=== PATIENT | female | born 1940 | race Caucasian/White ===

== ENCOUNTER 2017-10-11 08:15 | Emergency (ER) | payer OTHER ==
[~2017-10-11] VITALS: Ht 160 cm; Wt 64.9 kg
== END 2017-10-11 13:33 | disposition home or self-care (01) ==
LOC: ER 08:15 → EDBD 08:17 → ER 08:17
DX: K62.5 Hemorrhage of anus and rectum (principal); K52.89 Other specified noninfective gastroenteritis and colitis

== ENCOUNTER 2017-12-20 14:30 | Inpatient (IN) | payer OTHER ==
[~2017-12-20] VITALS: Ht 157.5 cm; Wt 63.0 kg
== END 2017-12-28 18:07 | disposition home or self-care (01) | DRG 331 ==
LOC: SURH 12-26 08:06 → O/R 12-26 08:06 → SURG 12-26 12:00 → SURH 12-26 19:49
PROVIDERS: Colon & Rectal Surgery
PROC: 0DTP4ZZ Resection of Rectum, Percutaneous Endoscopic Approach (ICD-10-PCS; 2017-12-26)
PROC: 07TC4ZZ Resection of Pelvis Lymphatic, Percutaneous Endoscopic Approach (ICD-10-PCS; 2017-12-26)
PROC: 0DJD8ZZ Inspection of Lower Intestinal Tract, Via Natural or Artificial Opening Endoscopic (ICD-10-PCS; 2017-12-26)
PROC: 0DTN4ZZ Resection of Sigmoid Colon, Percutaneous Endoscopic Approach (ICD-10-PCS; principal; 2017-12-26 12:00)
DX: C20 Malignant neoplasm of rectum (principal); R59.0 Localized enlarged lymph nodes

== ENCOUNTER 2018-02-23 16:15 | Emergency (ER) | payer OTHER ==
[~2018-02-23] VITALS: Ht 157.5 cm; Wt 55.3 kg
[2018-02-23] MEDS ORDERED: LYRICA50 MG PO (19:31)
== END 2018-02-23 20:10 | disposition home or self-care (01) ==
LOC: ER 16:15
DX: E11.40 Type 2 diabetes mellitus with diabetic neuropathy, unspecified (principal); R00.2 Palpitations

== ENCOUNTER 2019-01-09 23:01 | Emergency (ER) | payer OTHER ==
[~2019-01-09] VITALS: Ht 154.9 cm; Wt 59.0 kg
[~2019-01-09 23:01] MED LIST: LYRICA50 MG PO
[2019-01-09] MEDS ORDERED: NEURONTIN300 MG (23:13)
== END 2019-01-10 17:29 | disposition home or self-care (01) ==
LOC: ER 23:01
DX: R10.12 Left upper quadrant pain (principal); R11.2 Nausea with vomiting, unspecified; T47.2X5A Adverse effect of stimulant laxatives, initial encounter; Y92.89 Other specified places as the place of occurrence of the external cause

== ENCOUNTER 2019-02-21 07:28 | Day surgery (SDC) | payer OTHER ==
[~2019-02-21 07:28] MED LIST changes: +NEURONTIN300 MG
== END 2019-02-21 13:30 | disposition home or self-care (01) ==
LOC: AMB-ENDOS 07:28
DX: C20 Malignant neoplasm of rectum (principal); K64.2 Third degree hemorrhoids

== ENCOUNTER 2020-01-01 19:16 | Emergency (ER) | payer OTHER ==
[~2020-01-01] VITALS: Ht 160 cm; Wt 59.0 kg
[2020-01-01] MEDS ORDERED: GABAPENTIN600 MG PO (20:02)
[2020-01-01] MEDS ORDERED: BUSPIRONE HCL10 MG PO (20:03)
== END 2020-01-01 22:58 | disposition home or self-care (01) ==
LOC: ER 19:16
DX: K59.09 Other constipation (principal)

== ENCOUNTER 2020-01-03 08:09 | Inpatient (IN) | payer OTHER ==
[~2020-01-03] VITALS: Ht 160 cm; Wt 130.0 kg
[~2020-01-03 08:09] MED LIST changes: +BUSPIRONE HCL10 MG PO; +GABAPENTIN600 MG PO
== END 2020-01-08 22:56 | disposition home or self-care (01) | DRG 390 ==
LOC: ER 08:09 → SURH 17:54 → SEC-K 17:54 → SURH 19:34
PROVIDERS: ADMIT Colon & Rectal Surgery; ATTEND Colon & Rectal Surgery
PROC: 0D7 Gastrointestinal System, Dilation (ICD-10-PCS; principal; 2020-01-06)
DX: K56.690 Other partial intestinal obstruction (principal); Z20.828 Contact with and (suspected) exposure to other viral communicable diseases

== ENCOUNTER 2020-04-12 19:22 | Inpatient (IN) | payer OTHER ==
[~2020-04-12] VITALS: Ht 157.5 cm; Wt 59.0 kg
== END 2020-04-23 17:35 | disposition home or self-care (01) | DRG 373 ==
LOC: ER 19:22 → SURH 22:55 → MEDJ 22:55 → SURH 04-13 13:54
PROVIDERS: ADMIT Colon & Rectal Surgery; ATTEND Colon & Rectal Surgery
PROC: BW21ZZZ Computerized Tomography (CT Scan) of Abdomen and Pelvis (ICD-10-PCS; 2020-04-13)
PROC: 4A12X4Z Monitoring of Cardiac Electrical Activity, External Approach (ICD-10-PCS; 2020-04-13)
PROC: 0D9W30Z Drainage of Peritoneum with Drainage Device, Percutaneous Approach (ICD-10-PCS; principal; 2020-04-14)
PROC: BW21YZZ Computerized Tomography (CT Scan) of Abdomen and Pelvis using Other Contrast (ICD-10-PCS; 2020-04-14)
PROC: BW21YZZ Computerized Tomography (CT Scan) of Abdomen and Pelvis using Other Contrast (ICD-10-PCS; 2020-04-21)
DX: K65.1 Peritoneal abscess (principal); N73.8 Other specified female pelvic inflammatory diseases; G62.9 Polyneuropathy, unspecified; B96.29 Other Escherichia coli [E. coli] as the cause of diseases classified elsewhere; Z85.048 Personal history of other malignant neoplasm of rectum, rectosigmoid junction, and anus; Z08 Encounter for follow-up examination after completed treatment for malignant neoplasm; Z20.822 Contact with and (suspected) exposure to COVID-19; R00.0 Tachycardia, unspecified

== ENCOUNTER 2020-07-16 09:08 | Inpatient (IN) | payer OTHER ==
[~2020-07-16] VITALS: Ht 162.6 cm; Wt 59.0 kg
--- NOTE | 2020-07-16 09:40 | NUR ---
PTE ALERTA Y ORIENTADA X3 ACOMPANADA POR FAMILIAR REFIERE DOLOR ABDOMINAL Y RETORTIJONES HACEN 4 CARRANZA CON S/V ESTABLES SE PASA A TYESHA PARA SER ATENDIDA SE CON SULTA CON DRA REYNOLDS
--- NOTE | 2020-07-16 10:27 | NUR ---
PACIENTE ALERTA Y ORIENTADA POR VIVIANA ESFERAS. MS. ABBASI ORIENTA A PACIENTE SOBRE PROCEDIMIENTO Y TX, REFIERE ENTENDER. EXTRAE MUESTRAS DE LABORATORIO CON MEDIDAS ASEPTICAS Y COLOCA IVF'S WANDA ORDEN MEDICA.
[2020-07-19] MEDS ORDERED: SERTRALINE HCL25 MG (16:05)
[2020-07-19] MEDS ORDERED: BUSPIRONE HCL10 MG (16:05)
[2020-07-19] MEDS ORDERED: SULINDAC200 MG (16:06)
[2020-07-24] MEDS ORDERED: ULTRACET PO (10:19)
== END 2020-07-24 17:38 | disposition home or self-care (01) | DRG 330 ==
LOC: ER 09:08 → SURG 17:45
PROVIDERS: ADMIT Colon & Rectal Surgery; ATTEND Colon & Rectal Surgery
PROC: 0W9J30Z Drainage of Pelvic Cavity with Drainage Device, Percutaneous Approach (ICD-10-PCS; 2020-07-19)
PROC: 02HV33Z Insertion of Infusion Device into Superior Vena Cava, Percutaneous Approach (ICD-10-PCS; 2020-07-19)
PROC: 0D1L4Z4 Bypass Transverse Colon to Cutaneous, Percutaneous Endoscopic Approach (ICD-10-PCS; principal; 2020-07-21 15:15)
DX: K91.30 Postprocedural intestinal obstruction, unspecified as to partial versus complete (principal); T81.43XA Infection following a procedure, organ and space surgical site, initial encounter; N32.1 Vesicointestinal fistula; N73.6 Female pelvic peritoneal adhesions (postinfective); N99.4 Postprocedural pelvic peritoneal adhesions; K62.4 Stenosis of anus and rectum; B96.20 Unspecified Escherichia coli [E. coli] as the cause of diseases classified elsewhere; G62.9 Polyneuropathy, unspecified; Z98.890 Other specified postprocedural states

== ENCOUNTER 2020-08-19 23:37 | Inpatient (IN) | payer OTHER ==
[~2020-08-19] VITALS: Ht 160 cm; Wt 59.0 kg
[~2020-08-19 23:37] MED LIST changes: +BUSPIRONE HCL10 MG; +SERTRALINE HCL25 MG; +SULINDAC200 MG; +ULTRACET PO
== END 2020-08-30 12:54 | disposition home or self-care (01) | DRG 445 ==
LOC: ER 23:37 → MEDI 08-20 08:34
PROVIDERS: ADMIT Internal Medicine Cardiovascular Disease; ATTEND Internal Medicine Cardiovascular Disease
PROC: BW21ZZZ Computerized Tomography (CT Scan) of Abdomen and Pelvis (ICD-10-PCS; 2020-08-20)
PROC: 02HV33Z Insertion of Infusion Device into Superior Vena Cava, Percutaneous Approach (ICD-10-PCS; principal; 2020-08-22)
PROC: BF37YZZ Magnetic Resonance Imaging (MRI) of Pancreas using Other Contrast (ICD-10-PCS; 2020-08-23)
DX: K80.12 Calculus of gallbladder with acute and chronic cholecystitis without obstruction (principal); N39.0 Urinary tract infection, site not specified; N32.1 Vesicointestinal fistula; K51.00 Ulcerative (chronic) pancolitis without complications; R65.10 Systemic inflammatory response syndrome (SIRS) of non-infectious origin without acute organ dysfunction; K29.60 Other gastritis without bleeding; D72.829 Elevated white blood cell count, unspecified; Z93.2 Ileostomy status; Z20.822 Contact with and (suspected) exposure to COVID-19

== ENCOUNTER 2021-01-24 09:39 | Inpatient (IN) | payer OTHER ==
[~2021-01-24] VITALS: Ht 157.5 cm; Wt 54.4 kg
[2021-01-24] MEDS ORDERED: NEURONTIN600 M1 PO (09:56)
[2021-01-26] MEDS ORDERED: SERTRALINE HCL25 MG (13:12)
[2021-01-26] MEDS ORDERED: ABATINEX680 MG (13:12)
[2021-01-26] MEDS ORDERED: FAMOTIDINE20 MG (13:12)
[2021-01-26] MEDS ORDERED: BUSPIRONE HCL10 MG (13:12)
[2021-02-03] MEDS ORDERED: MIRALAX17 GM PO (15:16)
[2021-02-03] MEDS ORDERED: KRISTALOSE10 GM PO (15:17)
== END 2021-02-03 17:23 | disposition home or self-care (01) | DRG 389 ==
LOC: ER 09:39 → SURH 18:23
PROVIDERS: ADMIT Colon & Rectal Surgery; ATTEND Colon & Rectal Surgery
PROC: BW21ZZZ Computerized Tomography (CT Scan) of Abdomen and Pelvis (ICD-10-PCS; principal; 2021-01-24)
DX: K56.690 Other partial intestinal obstruction (principal); N39.0 Urinary tract infection, site not specified; C18.9 Malignant neoplasm of colon, unspecified; Z20.822 Contact with and (suspected) exposure to COVID-19; B95.62 Methicillin resistant Staphylococcus aureus infection as the cause of diseases classified elsewhere; Z90.49 Acquired absence of other specified parts of digestive tract

== ENCOUNTER 2021-02-11 11:00 | Inpatient (IN) | payer OTHER ==
[~2021-02-11] VITALS: Ht 157.5 cm; Wt 54.4 kg
[~2021-02-11 11:00] MED LIST changes: +ABATINEX680 MG; +FAMOTIDINE20 MG; +KRISTALOSE10 GM PO; +MIRALAX17 GM PO; +NEURONTIN600 M1 PO
[2021-02-15] MEDS ORDERED: SERTRALINE HCL25 MG (08:44)
[2021-02-15] MEDS ORDERED: SULINDAC200 MG (08:44)
[2021-02-15] MEDS ORDERED: BUSPIRONE HCL10 MG (08:44)
[2021-03-01] MEDS ORDERED: PERCOCET 5-3251 EACH PO (17:24)
[2021-03-01] MEDS ORDERED: INTEGRA PLUS C1 EACH PO (17:25)
== END 2021-03-01 22:42 | disposition home or self-care (01) | DRG 330 ==
LOC: ER 11:00 → SURH 19:39
PROVIDERS: ADMIT Colon & Rectal Surgery; ATTEND Colon & Rectal Surgery
PROC: 0DT84ZZ Resection of Small Intestine, Percutaneous Endoscopic Approach (ICD-10-PCS; principal; 2021-02-11)
PROC: 3E0F7SF Introduction of Other Gas into Respiratory Tract, Via Natural or Artificial Opening (ICD-10-PCS; 2021-02-11)
PROC: BW21ZZZ Computerized Tomography (CT Scan) of Abdomen and Pelvis (ICD-10-PCS; 2021-02-11)
PROC: 05HY33Z Insertion of Infusion Device into Upper Vein, Percutaneous Approach (ICD-10-PCS; 2021-02-11)
PROC: 0DN84ZZ Release Small Intestine, Percutaneous Endoscopic Approach (ICD-10-PCS; 2021-02-23)
PROC: 30243N1 Transfusion of Nonautologous Red Blood Cells into Central Vein, Percutaneous Approach (ICD-10-PCS; 2021-02-28)
DX: K56.699 Other intestinal obstruction unspecified as to partial versus complete obstruction (principal); C20 Malignant neoplasm of rectum; C78.4 Secondary malignant neoplasm of small intestine; D64.9 Anemia, unspecified; K66.0 Peritoneal adhesions (postprocedural) (postinfection); G62.9 Polyneuropathy, unspecified; Z20.822 Contact with and (suspected) exposure to COVID-19; F32.A Depression, unspecified; Z93.3 Colostomy status

== ENCOUNTER 2021-05-04 09:33 | Emergency (ER) | payer OTHER ==
[~2021-05-04] VITALS: Ht 157.5 cm; Wt 54.4 kg
[~2021-05-04 09:33] MED LIST changes: +INTEGRA PLUS C1 EACH PO; +PERCOCET 5-3251 EACH PO
[2021-05-04] MEDS ORDERED: DICLOFENAC POTA50 MG PO (12:57)
[2021-05-04] MEDS ORDERED: ORPHENADRINE C100 MG PO (12:57)
== END 2021-05-04 13:04 | disposition home or self-care (01) ==
LOC: ER 09:33
DX: M13.852 Other specified arthritis, left hip (principal); M13.851 Other specified arthritis, right hip; M54.41 Lumbago with sciatica, right side

== ENCOUNTER 2021-07-06 09:47 | Outpatient (CLI) | payer OTHER ==
[~2021-07-06 09:47] MED LIST changes: +DICLOFENAC POTA50 MG PO; +ORPHENADRINE C100 MG PO
== END 2021-07-06 09:48 | disposition home or self-care (01) ==
LOC: RAD 09:47
PROVIDERS: ATTEND Physical Medicine & Rehabilitation
DX: R22.2 Localized swelling, mass and lump, trunk (principal)

== ENCOUNTER 2021-07-19 05:45 | Day surgery (SDC) | payer OTHER | END 2021-07-19 13:15 | disposition home or self-care (01) | LOC: CIR.AMB 05:45 | PROVIDERS: ATTEND Colon & Rectal Surgery | DX: C20 Malignant neoplasm of rectum (principal); R59.0 Localized enlarged lymph nodes; G62.9 Polyneuropathy, unspecified; R20.0 Anesthesia of skin; K59.09 Other constipation; K56.609 Unspecified intestinal obstruction, unspecified as to partial versus complete obstruction; M54.31 Sciatica, right side; Z93.3 Colostomy status; K76.9 Liver disease, unspecified ==